=== PATIENT | female | born 1975 | race Caucasian/White ===

== ENCOUNTER → 2022-02-15 12:45 | Outpatient (CLI) | payer BC, SELFPAY ==
--- NOTE | 2022-02-15 13:00 | MM_ITS ---
PROCEDURE INFORMATION: Exam: MG Bilateral Screening 3D Mammography Exam date and time: 02/15/2022 12:57 PM Age: 46 years old Clinical indication: Baseline. Her grandmother and great grandmother had breast cancer. TECHNIQUE: Imaging protocol: Bilateral Screening tomosynthesis and 2D mammography including computer-aided detection (CAD) when performed. COMPARISON: No relevant prior studies available. FINDINGS: MAMMOGRAPHY: Breast composition: There are scattered areas of fibroglandular density. Mass: Possible lobulated 0.5 cm mass in the right breast at 12 o'clock middle to posterior 3rd, better seen on the MLO projection, frame 54 than CC frame 27. Architectural distortion: None. Calcifications: No suspicious calcifications. Asymmetric density: None. Skin thickening: None. Axillary adenopathy: None. IMPRESSION: Patient to be recalled for right diagnostic mammogram with spot compression in the CC and MLO projections as well as right breast ultrasound for further evaluation of possible right breast mass. ASSESSMENT: BI-RADS Category 0: Incomplete- Need Additional Imaging Evaluation and/or Prior Mammograms for Comparison
--- NOTE | 2022-02-15 13:00 | US_ITS ---
FINAL REPORT CLINICAL HISTORY: MENORRHAGIA W/ IRREGULAR CYCLE FINDINGS: Sonographic images of the pelvis were obtained. The uterus measures 9.5 x 5.8 x 5.0 cm The endometrium measures 11 mm, which is within normal limits. There is a 3.1 cm uterine fibroid. The right ovary measures 2.8 cm in length and left ovary measures 3.7 cm in length. Normal blood flow seen to the ovaries. There is a 1.4 cm right ovarian cyst. There is no evidence of free fluid. IMPRESSION: Uterine fibroid. Right ovarian cyst. Reviewed, Interpreted and Dictated by Angus Jessica III, MD Transcribed by Yanet Pablo Authenticated and [facility]
== END ==
PROVIDERS: PCP Nurse Practitioner Family; Visit Provider Nurse Practitioner Family
DX: Z12.31 Encounter for screening mammogram for malignant neoplasm of breast (principal); N92.1 Excessive and frequent menstruation with irregular cycle
CPT/HCPCS: 76830; 77063; 77067

== ENCOUNTER → 2022-03-23 13:39 | Outpatient (CLI) | payer BC, SELFPAY ==
--- NOTE | 2022-03-23 13:48 | MM_ITS ---
PROCEDURE INFORMATION: Exam: US Right Breast, Complete MG Right Diagnostic Breast Tomosynthesis Exam date and time: 03/23/2022 2:16 PM Age: 46 years old Clinical indication: Patient recalled on the basis of a screening mammogram for further evaluation; Right breast; mass TECHNIQUE: Imaging protocol: Complete ultrasound of all four quadrants of the Right breast and the retroareolar regions, including ultrasound of the axilla when performed. Right Diagnostic tomosynthesis and 2D mammography including computer-aided detection (CAD) when performed. Unilateral or bilateral exam. COMPARISON: MG MM DIG MAMM DX UNILAT RT CAD 03/23/2022 1:51 PM FINDINGS: MAMMOGRAPHY: Digital diagnostic spot compression views of the right breast and 90 degree lateral view of the right breast demonstrate normal overlapping fibroglandular structures without persistent mass or asymmetry identified. ULTRASOUND: Sonographic images of the right breast including the retroareolar region, all 4 quadrants and the axilla do not demonstrate any solid or cystic masses. No architectural distortion or acoustical shadowing. Cursors were placed over normal fibrofatty tissue. No skin thickening or axillary adenopathy. IMPRESSION: No mammographic or sonographic evidence of malignancy. Annual bilateral mammographic screening is recommended unless otherwise clinically indicated. ASSESSMENT: BI-RADS Category 1: Negative
== END ==
PROVIDERS: PCP Nurse Practitioner Family; Visit Provider Nurse Practitioner Family
DX: R92.8 Other abnormal and inconclusive findings on diagnostic imaging of breast (principal)
CPT/HCPCS: 76641; 77061; 77065; G0279

== ENCOUNTER 2023-11-09 14:15 | Outpatient (CLI) | payer BC, SELFPAY ==
[2023-11-09 15:00] LABS: Basophils # 0.1 K/mm3 (0-0.2); Basophils % 1.6 % (0.1-2.0); Eosinophils # 0.2 K/mm3 (0.0-0.4); Eosinophils % 2.5 % (0.1-12.0); Hematocrit 42.4 % (37.0-47.0); Hemoglobin 13.6 g/dL (12.2-16.2); Lymphocytes # 1.4 K/mm3 (0.7-4.5); Lymphocytes % 22.3 % (10-50); Mean Corpuscular HGB Conc 32.1 g/dL (31.8-35.4); Mean Corpuscular Hemoglobin 30.8 pg (27.0-31.2); Mean Corpuscular Volume 95.8 fl (81-99); Mean Platelet Volume 8.6 fl (7.4-10.4); Monocytes # 0.3 K/mm3 (0.1-1.0); Monocytes % 5.3 % (1.7-9.3); Neutrophils # 4.4 K/mm3 (1.8-7.8); Neutrophils % 68.3 % (37.0-80.0); Platelet Count 376 K/mm3 (142-424); Red Blood Count 4.42 M/mm3 (4.20-5.40); Red Cell Distribution Width 13.6 % (11.5-17.5); White Blood Count 6.4 K/mm3 (4.8-10.8)
[2023-11-09 15:08] LABS: Chloride 97 mmol/L (98-107); Potassium 4.5 mmoL/L (3.5-5.1); Sodium 132 mmol/L (136-145)
[2023-11-09 15:11] LABS: Alanine Aminotransferase 24 U/L (12-78); Albumin Level 4.2 g/dl (3.5-5.0); Albumin/Globulin Ratio 1.2 (1.1-1.8); Alkaline Phosphatase 112 U/L (38-126); Anion Gap 9.5 mEq/L (5-15); Aspartate Amino Transferase 27 U/L (14-36); Bilirubin,Total 0.7 mg/dl (0.2-1.3); Blood Urea Nitrogen 11 mg/dl (7-17); Carbon Dioxide 30 mmol/L (22.0-30.0); Estimated Glomerular Filt Rate 89 ml/min (>60); GFR (African American) 108 ML/MIN (>60); Globulin 3.4 g/dL (1.3-3.2); Total Protein,Serum 7.6 g/dl (6.3-8.2)
[2023-11-09 15:12] LABS: Calcium 9.9 mg/dl (8.4-10.2)
[2023-11-09 15:24] LABS: Glucose 473 mg/dl (74-100)
[2023-11-09 15:53] LABS: HCG,Quantitative < 2 mIU/ml (0-5.42)
[2023-11-09 18:28] LABS: Hemoglobin A1C 12.1 % (4.0-6.0)
== END 2023-11-09 23:59 | disposition home or self-care (01) ==
LOC: LAB 14:16
PROVIDERS: PCP Obstetrics & Gynecology; Visit Provider Obstetrics & Gynecology
DX: Z01.818 Encounter for other preprocedural examination (principal); N92.1 Excessive and frequent menstruation with irregular cycle; D25.1 Intramural leiomyoma of uterus
CPT/HCPCS: 36415; 80053; 83036; 84702; 85025; 86850